=== PATIENT | male | born 1985 | race Caucasian/White ===

== ENCOUNTER 2021-11-07 09:46 | Outpatient (REF) | payer OTHER, SELFPAY ==
[2021-11-07 10:34] LABS: Binax Now Covid-19 Ag Negative (Negative)
[2021-11-07 10:35] LABS: Binax Internal Control QC Valid; Binax Lot number: 9864
== END 2021-11-07 09:47 | disposition home or self-care (01) ==
LOC: HO.LAB 09:46
PROVIDERS: Visit Provider Internal Medicine
DX: Z20.822 Contact with and (suspected) exposure to COVID-19 (principal)
CPT/HCPCS: 36415; C9803

== ENCOUNTER 2024-05-03 10:58 | Outpatient (REF) | payer MEDICARE, MEDICAID, SELFPAY ==
[2024-05-03 14:21] LABS: MANUAL DIFF FLAG NO
[2024-05-03 14:26] LABS: Basophils Absolute Auto 0.1 X10*3/uL (0.0-0.2); Basophils Percent Auto 0.7 % (0-2); Eosinophils Absolute Auto 0.5 X10*3/uL (0.0-0.4); Eosinophils Percent Auto 5.5 % (0-4); Hematocrit 43.2 % (42.0-52.0); Hemoglobin 13.9 g/dl (14.0-18.0); Imm Gran Abs Auto 0.06 X10*3/uL (0.00-0.03); Imm Gran Pct Auto 0.6 % (0.0-0.4); Lymphocytes Absolute Auto 3.1 X10*3/uL (1.2-4.9); Lymphocytes Percent Auto 31.5 % (20-40); Mean Corpuscular HGB Conc 32.2 g/dl (31.0-36.0); Mean Corpuscular Hemoglobin 31.6 pg (27.0-33.0); Mean Corpuscular Volume 98.2 fL (80.0-98.0); Mean Platelet Volume 10.1 fL (9.4-12.4); Monocytes Absolute Auto 0.5 X10*3/uL (0.1-1.2); Monocytes Percent Auto 5.6 % (2-11); Neutrophils Absolute Auto 5.4 x10*3/uL (2.0-8.3); Neutrophils Percent Auto 56.1 % (45-73); Platelet Count 356 X10*3/uL (160-400); Red Cell Distribution Width 12.4 % (11.0-16.0); White Blood Count 9.7 X10*3/uL (4.8-10.8)
[2024-05-03 14:37] LABS: Estimated Average Glucose 94 mg/dL; Hemoglobin A1c % 4.9 % (<6.0)
[2024-05-03 14:52] LABS: Alanine Aminotransferase 241 U/L (0-40); Albumin Level 4.5 g/dL (3.5-5.0); Alkaline Phosphatase 126 U/L (39-117); Anion Gap 15 (12-20); Aspartate Amino Transferase 140 U/L (5-37); Bilirubin Total 0.5 mg/dL (0.0-1.0); Blood Urea Nitrogen 10 mg/dL (9-16); Calcium 10.2 mg/dL (8.4-10.2); Carbon Dioxide 25 mmol/L (22-29); Chloride 107 mmol/L (96-108); Cholesterol 217 mg/dL (<200); Estimated Glomerular Filt Rate > 60; Glucose Random 103 mg/dL (60-115); HDL Cholesterol 36 mg/dL (>40); LDL Cholesterol Calculated 148 mg/dL (<100); Potassium 4.2 mmol/L (3.3-5.1); Sodium 143 mmol/L (135-145); Total Protein 7.7 g/dL (6.5-8.0); Triglycerides 167 mg/dL (<150)
[2024-05-03 14:56] LABS: HBS Num1 12.51 mIU/mL (0-7.99); HBc Num1 0.52 S/CO (0.00-0.79); HBsAGNum1 0.28 S/CO (0.00-0.99); HIV AB/AG Nonreactive (Nonreactive); HIV Num 1 0.07 S/CO (0.00-0.99); Hepatitis B Core Antibody Nonreactive (Nonreactive); Hepatitis B Surface Antigen Negative (Negative); ~Hepatitis B Surface Antibody REACTIVE (Nonreactive)
[2024-05-03 14:56] LABS: Microalbum/Creatinine Ratio Ur 15.8 ug/mg cr (<30)
[2024-05-03 14:58] LABS: TSH reflex Free T4 10.25 uIU/mL (0.32-4.0)
[2024-05-03 15:36] LABS: Free T4 (Free Thyroxine) 1.08 ng/dL (0.71-1.85)
[2024-05-05 22:23] LABS: TS Negative Control Passed; TS Panel A 0; TS Panel B 0; TS Positive Control Passed; TSpotTB Negative (Negative)
[2024-05-06 08:09] LABS: RPR Rapid Plasma Reagin NON-REACTIVE (NON-REACTIVE)
[2024-05-06 14:18] LABS: HCV Log PCR <1.18 NOT DETECTED Log IU/mL (NOT DETECTED); HepC Viral Load <15 NOT DETECTED IU/mL (NOT DETECTED)
== END 2024-05-03 10:59 | disposition home or self-care (01) ==
LOC: HO.CHCLDS 10:58
PROVIDERS: Visit Provider Registered Nurse
DX: Z00.00 Encounter for general adult medical examination without abnormal findings (principal); Z20.2 Contact with and (suspected) exposure to infections with a predominantly sexual mode of transmission
CPT/HCPCS: 36415; 80053; 80061; 82043; 82570; 83036; 84439; 84443; 85025; 86481; 86592; 86704; 86706; 87340; 87389; 87522

== ENCOUNTER 2025-03-03 14:15 | Outpatient (REF) | payer MEDICARE, MEDICAID, SELFPAY ==
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
--- OUTSIDE RECORDS SUMMARY | 2025-03-03 17:03 | XMS_ITS | Encounter Summary ---
Author Organization [employer] Address [address] [facility] [address] [place] [address] Care Team Providers Care Therapeutic Consultant Name Role Phone Joanie Paul HIDE DYER Primary Care Provider [phone] Komal Caceres NP Unavailable [phone] Encounter Details Date Type Department Care Team (Latest Contact Info) Description 03/03/2025 Travel Social History Tobacco Use Types Packs/Day Years [...] Description 04/11/2025 2:00 PM EDT Office Visit [facility] [address] [place] [address] Joanie Paul FNP [address] [place] [address] documented as of this encounter Visit Diagnoses Not on filedocumented in this encounter Additional Health Concerns Assessment Noted Time PHQ-9 Depression Total Score: 19 024 10:16 AM EDT documented as of this encounter Care Teams Therapeutic Consultant Relationship Specialty Start Date End Date Joanie Paul FNP [address] [place] [address] PCP - General Family Medicine 05/03/24 Komal Caceres NP [address] [phone] Sleep Medicine 10/08/24 documented as of this encounter
--- OUTSIDE RECORDS SUMMARY | 2025-03-03 17:03 | XMS_ITS | Encounter Summary ---
Author Organization [employer] Address [address] [facility] 7t [place] [address] Care Team Providers Care Government Auditor Name Role Phone Joanie Paul Primary Care Provider [phone] Komal Caceres GAS PUMPING STATION OPERATOR Unavailable + [phone] Reason for Referral * Consultation (Routine) - Pending Review Specialty Diagnoses / Procedures Referred By Manpreet damon Referred To Contact Podiatry Diagnoses Onychauxis Joanie Paul FNP [address] [place] [address] Phone: tel: fax: Referral ID Status Reason Start Date Expiration Date Visits Requested Visits Authorized [id number] Pending Review Specialty Services Required 03/03/2025 03/03/2026 1 1 Encounter Details Date Type Department Care Team ([facility] st Contact Info) Description 03/03/2025 1:00 PM EDT Office Visit [facility] [address] [place] [address] Joanie Paul FNP [address] [place] [address] Onychauxis (Primary Dx); Neck pain; Chronic low back pain, unspecified back pain laterality, unspecified whether sciatica present Social History Tobacco Use Types Packs/Day Years [...] AM EDT documented as of this encounter Last Filed Vital Signs Vital Sign Reading [...] Mass Index 43.76 03/03/2025 1:12 PM EDT documented in this encounter Plan of Treatment Upcoming Encounters Date Type Department Care Team (Late st Contact Info) Description 04/11/2025 2:00 PM EDT Office Visit [facility] [address] [place] [address] Joanie Paul FNP [address] [place] [address] Scheduled Orders Name Type Priority Associated Diagnoses Orde r Schedule XR Cervical Spine 2-3 Views Imaging Routine Neck pain Expected: 03/03/2025, Expires: 03/03/2026 XR Lumbar Spine Complete 4+ Views Imaging Routine Chronic low back pain, unspecified back pain laterality, unspecified whether sciatica present Expected: 03/03/2025, Expires: 03/03/2026 Scheduled Referrals Name Type Priority Associated Diagnoses Orde r Schedule Referral to Podiatry Outpatient Referral Routine Onychauxis Expected: 03/03/2025 (Approximate), Expires: 03/03/2026 documented as of this encounter Visit Diagnoses Diagnosis Onychauxis- Primary Other specified disease of nail Neck pain Cervicalgia Chronic low back pain, unspecified back pain laterality, unspecified whether sciatica present documented in this encounter Additional Health Concerns Assessment Noted Time PHQ-9 Depression Total Score: 19 024 10:16 AM EDT documented as of this encounter Care Teams Government Auditor Relationship Specialty Start Date End Date Joanie Paul FNP [address] [place] [address] PCP - General Family Medicine 05/03/24 Komal Caceres NP [address] [place] [phone] Sleep Medicine 10/08/24 documented as of this encounter
[2025-03-03 17:39] LABS: Estimated Average Glucose 94 mg/dL; Hemoglobin A1C 106.6065 umol/L; Hemoglobin A1c % 4.9 % (<6.0); Total Hemoglobin (HGBA1C) 3593.3747 umol/L
[2025-03-03 18:27] LABS: Alanine Aminotransferase 204 U/L (0-40); Albumin Level 4.4 g/dL (3.5-5.0); Alkaline Phosphatase 153 U/L (39-117); Anion Gap 15 (12-20); Aspartate Amino Transferase 115 U/L (5-37); Bilirubin Total 1.1 mg/dL (0.0-1.0); Blood Urea Nitrogen 8 mg/dL (9-16); Carbon Dioxide 24 mmol/L (22-29); Chloride 107 mmol/L (96-108); Estimated Glomerular Filt Rate > 60; Glucose Random 95 mg/dL (60-115); Potassium 3.8 mmol/L (3.3-5.1); Sodium 142 mmol/L (135-145); Total Protein 7.6 g/dL (6.5-8.0)
[2025-03-03 18:53] LABS: TSH reflex Free T4 4.82 uIU/mL (0.32-4.0)
[2025-03-03 19:33] LABS: Free T4 (Free Thyroxine) 1.12 ng/dL (0.71-1.85)
== END 2025-03-03 14:16 | disposition home or self-care (01) ==
LOC: HO.CHCLDS 14:15
PROVIDERS: Visit Provider Registered Nurse
DX: Z00.00 Encounter for general adult medical examination without abnormal findings (principal)
CPT/HCPCS: 36415; 80053; 83036; 84439; 84443

== ENCOUNTER 2025-07-14 10:23 | Outpatient (REF) | payer OTHER, SELFPAY ==
--- OUTSIDE RECORDS SUMMARY | 2025-07-14 09:00 | XMS_ITS | Encounter Summary ---
Author Organization [employer] Address [address] [facility] 7t [place] [address] Care Team Providers Care General Hardware Salesperson Name Role Phone Joanie Paul Primary Care Provider [phone] Komal Caceres PAINTER AIRBRUSH Unavailable + [phone] Reason for Referral * Consultation (Routine) - Pending Review Specialty Diagnoses / Procedures Referred By Contac t Referred To Contact Obesity Medicine Diagnoses Severe obesity (CMS/HCC) Joanie Paul FNP [address] [place] [address] Phone: tel: fax: Referral ID Status Reason Start Date Expiration Date Visits Requested Visits Authorized [id number] Pending Review Specialty Services Required 07/14/2025 07/14/2026 1 1 * Consultation (Routine) - Pending Review Specialty Diagnoses / Procedures Referred By Contac t Referred To Contact Gastroenterology Diagnoses Hemorrhoids, unspecified hemorrhoid type Dark stools Joanie Paul FNP [address] [place] [address] Phone: tel: fax: Referral ID Status Reason Start Date Expiration Date Visits Requested Visits Authorized [id number] Pending Review Specialty Services Required 07/14/2025 07/14/2026 1 1 * Consultation (Urgent) - Pending Review Specialty Diagnoses / Procedures Referred By Contac t Referred To Contact Pulmonary Disease Diagnoses Dyspnea on exertion Obstructive sleep apnea Joanie Paul FNP [address] [place] [address] Phone: tel: fax: Referral ID Status Reason Start Date Expiration Date Visits Requested Visits Authorized [id number] Pending Review Specialty Services Required 07/14/2025 07/14/2026 1 1 Encounter Details Date Type Department Care Team ([facility] st Contact Info) Description 07/14/2025 9:00 AM EDT Office Visit [facility] MED & PEDS [address] [place] [address] Joanie Paul FNP [address] [place] [address] Dyspnea on exertion (Primary Dx); Obstructive sleep apnea; Healthcare maintenance; Hemorrhoids, unspecified hemorrhoid type; Dark stools; Severe obesity (CMS/HCC) Social History Tobacco Use Types Packs/Day Years Used Date Smoking Tobacco: Never Smokeless Tobacco: Never Depression Answer Date Recorded Patient Health Questionnaire-9 Score 16 07/14/2025 Patient Health Questionnaire-9 Score 16 07/14/2025 Last PHQ-9: Questionnaire Data Not on file 0 07/14/2025 Housing Stability Answer Date Recorded What is your housing situation today? I have [place] 07/14/[address] you li ve. Do you have problems with any of the following? None of the above 07/14/2025 Food Insecurity Answer Date Recorded Within the past 12 months, y ou worried that your food would run out before you got money to buy more: Never True 07/14/2025 Within the past 12 months,th e food you bought just didn't last and you didn't have enough money to get more: Never True 06/2025 Transportation Answer Date Recorded In the past 12 months, has l ack of transportation kept you from medical appts, meetings, work or from getting things needed for daily living? No 07/14/2025 Utilities Answer Date Recorded In the past 12 months, has t he electric, gas, oil or water company threatened to shut off services in your home? No 07/14/2025 Depression Answer Date Recorded Patient Health Questionnaire-2 Score 4 07/14/2025 Internet Access Answer Date Recorded Internet Access Q1 Yes 07/14/2025 Internet Access Q2 Not on file 07/14/2025 Sex and Gender Information Value Date Recorded Sex Assigned at Male 05/03/2024 8:56 AM EDT Legal Sex Male 1:17 PM EDT Gender Identity Male 05/03/2024 8:56 AM EDT Sexual Orientation Straight 05/03/2024 8: 56 AM EDT documented as of this encounter Last Filed Vital Signs Vital Sign Reading Time Taken Comments Blood Pressure 138/88 07/14/2025 9:10 AM EDT Pulse 76 07/14/2025 9:10 AM EDT Temperature 36.9 C (98.4 F) 07/14/2025 9:10 AM EDT Respiratory Rate 20 07/14/2025 9:10 AM EDT Oxygen Saturation - - Inhaled Oxygen Concentration - - Weight 165 kg (364 lb) 07/14/2025 9:10 AM EDT Height 193 cm (6' 4 ) 07/14/2025 9:10 AM EDT Body Mass Index 44.31 07/14/2025 9:10 AM EDT documented in this encounter Functional Status * Over the past 2 weeks, how often have you been bothered by any of the following problems? Question Answer Date of Assessment Author Patient Health Questionnaire-2 Score 4 06/2025 9:11 AM EDT Corrine Ball MA * Little interest or pleasure in doing things Answer Date of Assessment Author More than half the days 07/14/2025 9:11 AM EDT Corrine Kern MA * Feeling down, depressed, or hopeless Answer Date of Assessment Author More than half the days 07/14/2025 9:11 AM EDT Corrine Kern MA * Trouble falling or staying asleep, or sleeping too much Answer Date of Assessment Author Nearly every day 07/14/2025 9:11 AM EDT Livia Ball MA * Feeling tired or having little energy Answer Date of Assessment Author Nearly every day 07/14/2025 9:11 AM EDT Livia Ball MA * Poor appetite or overeating Answer Date of Assessment Author Several days 07/14/2025 9:11 AM EDT Marci Ball MA * Feeling bad about yourself - or that you are a failure or have let yourself or your family down Answer Date of Assessment Author More than half the days 07/14/2025 9:11 AM EDT Corrine Kern MA * Trouble concentrating on things, such as reading the newspaper or watching television Answer Date of Assessment Author Several days 07/14/2025 9:11 AM EDT Marci Ball MA * Moving or speaking so slowly that other people could have noticed? Or the opposite - being so fidgety or restless that you have been moving around a lot more than usual. Answer Date of Assessment Author Several days 07/14/2025 9:11 AM EDT Marci Ball MA * Thoughts that you would be better off or hurting yourself in some way Answer Date of Assessment Author Several days 07/14/2025 9:11 AM EDT Marci Ball MA * Patient Health Questionnaire-9 Score Answer Date of Assessment Author 16 07/14/2025 9:11 AM EDT Marci Ball MA * How difficult have these problems made it for you to do your work, take care of things at home, or get along with other people? Answer Date of Assessment Author Not difficult at all 07/14/2025 9:11 AM EDT Corrine Queen MA documented as of this encounter Miscellaneous Notes * Assessment & Plan Note - LITTLE De Souza - 07/14/2025 9:15 AM EDTAssociated Problem(s): Dyspnea on exertion - Dec 2018 -hospitalization for loculated pleural effusion and empyema with concomitant necrotizingpneumonia involving the mediastinum - Broad differential including cardiac versus respiratory versus obesity versus variable treatment of MARCOS versus other - Pending orders: CXR, PFTs, and Echo. Encouraged to complete - Given complex past medical history and risk factors, will refer to cards for further eval documented in this encounter Plan of Treatment Upcoming Encounters Date Type Department Care Team (Late st Contact Info) Description 09/09/2025 11:00 AM EST Office Visit [facility] OPTOMETRY [address] [place] [address] Komal Bailon OD [address] [place] [address] Scheduled Orders Name Type Priority Associated Diagnoses Orde r Schedule TSH W/Reflex to FT4 Lab Routine Healthcare maintenance Expected: 07/14/2025 (Approximate), Expires: 07/14/2026 Lipid Panel, Standard Lab Routine Healthcare maintenance Expected: 07/14/2025 (Approximate), Expires: 07/14/2026 Comprehensive Metabolic Panel Lab Routine Healthcare maintenance Expected: 07/14/2025 (Approximate), Expires: 07/14/2026 Hemoglobin A1c Lab Routine Healthcare maintenance Expected: 07/14/2025 (Approximate), Expires: 07/14/2026 CBC auto differential Lab Routine Healthcare maintenance Expected: 07/14/2025 (Approximate), Expires: 07/14/2026 Scheduled Referrals Name Type Priority Associated Diagnoses Order Schedule Referral to Pulmonology Outpatient Referral Urgent Dyspnea on exertion Obstructive sleep apnea Expected: 07/14/2025 (Approximate), Expires: 07/14/2026 Referral to Gastroenterology Outpatient Referral Routine Hemorrhoids, unspecified hemorrhoid type Dark stools Expected: 07/14/2025 (Approximate), Expires: 07/14/2026 Referral to Weight Management Outpatient Referral Routine Severe obesity (CMS/HCC) Expected: 07/14/2025 (Approximate), Expires: 07/14/2026 documented as of this encounter Visit Diagnoses Diagnosis Dyspnea on exertion- Primary Other dyspnea and respiratory abnormality Obstructive sleep apnea Obstructive sleep apnea (adult) (pediatric) Healthcare maintenance Hemorrhoids, unspecified hemorrhoid type Dark stools Nonspecific abnormal finding in stool contents Severe obesity (CMS/HCC) Morbid obesity documented in this encounter Additional Health Concerns Assessment Noted Time PHQ-9 Depression Total Score: 16 025 9:11 AM EDT documented as of this encounter Care Teams General Hardware Salesperson Relationship Specialty Start Date End Date Joanie Paul FNP [address] [place] [address] PCP - General Family Medicine 05/03/24 Komal Caceres NP [address] [place] [phone] Sleep Medicine 10/08/24 documented as of this encounter
--- OUTSIDE RECORDS SUMMARY | 2025-07-14 12:20 | XMS_ITS | Clinical Summary ---
Author Organization [facility] Address [address] [place] [address] Phone Care Team Providers Care Geochemistry Teacher Name Role Phone Physician, Pcp Unknown Primary Care Provider Sarah vailable Encounters Date Type Department Care Team Description 06/11/2025 1:45 PM EDT Consult Orthopedic Surgery [facility] [address] [phone] Dale Bhatia DPM Ingrowing nail (Primary Dx); Onychogryphosis; Neuritis from Last 3 Months Social History Tobacco Use Types Packs/Day Years Used Date Smoking Tobacco: Never Assessed Sex and Gender Information Value Date Recorded Sex Assigned at Not on file Legal Sex Male 8:03 AM EDT Gender Identity Not on file Sexual Orientation Not on file Plan of Treatment Upcoming Encounters Date Type Department Care Team (Late st Contact Info) Description 07/14/2025 4:00 PM EDT Office Visit Orthopedic [facility] [address] [address] Dale Bhatia DPM [address] [address] Health Maintenance Due Date Last Done Comments Hepatitis B Vaccines (1 of 3 - 19+ 3-dose series) 2006 Depression Screening 11/06/2024 Hepatitis C Screening 03/20/2025 Medicare Annual Wellness Visit 03/20/2025 Social Influencers of Health Screening 03/20/2025 Hypertension/CHF/CAD Annual BMP Blood Test 06/12/2025 COVID-19 Vaccine ( - 2023-2 5 season) 2025 Influenza Vaccine (#1) 2025 03/09/2016 DTaP,Tdap,and Td Vaccines (2 - Td or Tdap) 03/09/2026 03/09/2016 Cholesterol Screening (Lipid Panel) 05/03/2029 05/03/2024 HIV Screening Completed 05/03/2024 HIB Vaccines Aged Out No longer eligi ble based on patient's age to complete this topic HPV Vaccines Aged Out No longer eligi ble based on patient's age to complete this topic Hepatitis A Vaccines Aged Out No long er eligible based on patient's age to complete this topic IPV Vaccines Aged Out No longer eligi ble based on patient's age to complete this topic MMR Vaccines Aged Out No longer eligi ble based on patient's age to complete this topic Meningococcal ACWY Vaccine Aged Out N o longer eligible based on patient's age to complete this topic Meningococcal B Vaccine Aged Out No l onger eligible based on patient's age to complete this topic Pneumococcal Vaccine: Pediat rics (0 to 5 Years) and At-Risk Patients (6 to 49 Years) Aged Out No longer eligi ble based on patient's age to complete this topic RSV Immunization Patients Un melecio 20 months Aged Out No longer eligible b ased on patient's age to complete this topic Varicella Vaccines Aged Out No longer eligible based on patient's age to complete this topic Insurance [employer] MEDICARE Member Subscriber Plan / Payer (Ef fective 2024-Present) Name:CHANDLER BLACK Relation to Subscriber:Self Name:Chandler Black Payer ID:[id number] Group ID:[id number] Type:Not on file Address: [place] [address] [address] MEDICAID - [place] Care Teams Geochemistry Teacher Relationship Specialty Start Date End Date Physician, Pcp Unknown PCP - General 03/20/25
--- OUTSIDE RECORDS SUMMARY | 2025-07-14 12:21 | XMS_ITS | Encounter Summary ---
Author Organization [employer] Address [address] [facility] 7t [place] [address] Care Team Providers Care Game Agent Name Role Phone Joanie Paul COMPLIANCE INTERN Primary Care Provider [phone] Komal Caceres SALES VICE PRESIDENT Unavailable + [phone] Reason for Visit * Reason Comments Med Refill Encounter Details Date Type Department Care Team ([facility] st Contact Info) Description 12/19/2024 Refill [facility] MED [facility] PEDS [address] [place], [place] [phone] Joanie Paul FNP [address] [place] [address] Low back pain at multiple sites Social [...] Description 09/09/2025 11:00 AM EST Office Visit [facility] OPTOMETRY [address] [place] [address] Komal Bailon OD [address] [place] [address] documented as of this encounter Visit Diagnoses Diagnosis Low back pain at multiple sites documented in this encounter Additional Health Concerns Assessment Noted Time PHQ-9 Depression Total Score: 19 024 10:16 AM EDT documented as of this encounter Care Teams Game Agent Relationship Specialty Start Date End Date Joanie Paul FNP [address] [place] [address] PCP - General Family Medicine 05/03/24 Komal Caceres NP [address] [phone] Sleep Medicine 10/08/24 documented as of this encounter
--- OUTSIDE RECORDS SUMMARY | 2025-07-14 12:21 | XMS_ITS | Encounter Summary ---
Author Organization [employer] Address [address] [facility] 7t [place] [address] Care Team Providers Care Early Childhood Education Specialist Name Role Phone Joanie Paul AIRLINE PILOT/FIRST OFFICER Primary Care Provider [phone] Komal Caceres STITCHING MACHINE SETTER Unavailable + [phone] Reason for Visit * Reason Onset Date Comments chart prep 07/11/2025 Encounter Details Date Type Department Care Team ([facility] st Contact Info) Description 07/11/2025 Telephone [facility] MED [facility] PEDS [address] [place], [place] [phone] Joanie Palu FNP [address] [place] [address] chart prep Social History Tobacco Use Types Packs/Day Years [...] AM EDT documented as of this encounter Miscellaneous Notes * Telephone Encounter - Corrine Ball MA - 07/11/2025 1:33 PM EDT Chart Prep Labs: done Images: done Referrals: appointment pending Vaccines due: Covid, Flu, and HPV Screenings: not applicable Overdue care gaps: SBIRT, SDOH, PHQ-9, and Disability screen documented in this encounter Plan of Treatment Upcoming Encounters Date Type Department Care Team (Late st Contact Info) Description 09/09/2025 11:00 AM EST Office Visit [facility] OPTOMETRY [address] [place] [address] Komal Bailon OD [address] [place] [address] documented as of this encounter Visit Diagnoses Not on filedocumented in this encounter Additional Health Concerns Assessment Noted Time PHQ-9 Depression Total Score: 19 024 10:16 AM EDT documented as of this encounter Care Teams Early Childhood Education Specialist Relationship Specialty Start Date End Date Joanie Paul FNP [address] [place] [address] PCP - General Family Medicine 05/03/24 Komal Caceres NP NPI: [id number] [place] [phone] Sleep Medicine 10/08/24 documented as of this encounter
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
--- OUTSIDE RECORDS SUMMARY | 2025-07-14 12:21 | XMS_ITS | Encounter Summary ---
Author Organization [employer] Address [address] [facility] [address] [place] [address] Care Team Providers Care Time Lock Expert Name Role Phone Joanie Paul LOG ROLLER Primary Care Provider [phone] Komal Caceres TRANSIT OPERATIONS SUPERVISOR Unavailable [phone] Reason for Visit * Reason Onset Date Comments Med Refill 07/11/2025 Encounter Details Date Type Department Care Team (Late st Contact Info) Description 07/11/2025 Refill [facility] [address] [place], [place] [phone] Joanie Paul FNP [address] [place] [address] Low back pain at multiple sites Social [...] encounter Miscellaneous Notes * Telephone Encounter - Jennifer Philip LPN - 07/11/2025 1:08 PM EDT Last seen 04/11/25. documented in this encounter Plan of Treatment Upcoming Encounters Date Type Department Care Team (Late st Contact Info) Description 09/09/2025 11:00 AM EST Office Visit [facility] [address] [place] [address] Komal Bailon, CLAUDETTE [address] [place] [address] documented as of this encounter Visit Diagnoses Diagnosis Low back pain at multiple sites documented in this encounter Additional Health Concerns Assessment Noted Time PHQ-9 Depression Total Score: 19 024 10:16 AM EDT documented as of this encounter Care Teams Time Lock Expert Relationship Specialty Start Date End Date Joanie Paul FNP [address] [place] [address] PCP - General Family Medicine 05/03/24 Komal Caceres NP [address] [phone] Sleep Medicine 10/08/24 documented as of this encounter
--- OUTSIDE RECORDS SUMMARY | 2025-07-14 12:21 | XMS_ITS | Encounter Summary ---
Author Organization [employer] Address [address] [facility] [address] [place] [address] Care Team Providers Care Seasonal Tax Preparer Name Role Phone Joanie Paul TRAVERTINE INSTALLER Primary Care Provider Komal Caceres ORTHOTICS PROSTHETICS ASSISTANT Unavailable [phone] Encounter Details Date Type Department Care Team (Latest Contact Info) Description 07/14/2025 Travel Social History Tobacco Use Types Packs/Day [...] AM EDT documented as of this encounter Functional Status * Over the [...] than half the days 07/14/2025 9:11 AM Corrine Mathew [place] * Trouble falling or staying asleep, or sleeping too much Answer Date of Assessment Author Nearly every day 07/14/2025 9:11 AM Livia Florian [place] * Feeling tired or having little energy Answer Date of Assessment Author Nearly every day 07/14/2025 9:11 AM Livia Florian [place] * Poor appetite or overeating Answer Date of Assessment Author Several days 07/14/2025 9:11 AM Marci Florian [place] * Feeling bad about yourself - or that you are a failure or have let yourself or your family down Answer Date of Assessment Author More than half the days 07/14/2025 9:11 AM EDCorrine Art [place] * Trouble concentrating on things, such as reading the newspaper or watching television Answer Date of Assessment Author Several days 07/14/2025 9:11 AM Marci Florian MA * Moving or speaking so slowly that other people could have noticed? Or the opposite - being so fidgety or restless that you have been moving around a lot more than usual. Answer Date of Assessment Author Several days 07/14/2025 9:11 AM Marci Florian MA * Thoughts that you would be [...] Queen [place] documented as of this encounter Plan of Treatment Upcoming Encounters Date Type Department Care Team (Late st Contact Info) Description 09/09/2025 11:00 AM EST Office Visit [facility] [address] [place], [place] [phone] Komal Bailon, OD [address] [place] [address] documented as of this encounter Visit Diagnoses Not on filedocumented in this encounter Additional Health Concerns Assessment Noted Time PHQ-9 Depression Total Score: 16 025 9:11 AM EDT documented as of this encounter Care Teams Seasonal Tax Preparer Relationship Specialty Start Date End Date Joanie Paul FNP [address] [place] [address] PCP - General Family Medicine 05/03/24 Komal Caceres NP [address] [phone] Sleep Medicine 10/08/24 documented as of this encounter
[2025-07-14 14:56] LABS: MANUAL DIFF FLAG NO
[2025-07-14 15:21] LABS: Hematocrit 43.6 % (42.0-52.0); Hemoglobin 14.2 g/dl (14.0-18.0); Imm Gran Abs Auto 0.11 X10*3/uL (0.00-0.03); Imm Gran Pct Auto 1.0 % (0.0-0.4); Lymphocytes Absolute Auto 3.3 X10*3/uL (1.2-4.9); Mean Corpuscular HGB Conc 32.6 g/dl (31.0-36.0); Mean Corpuscular Hemoglobin 31.8 pg (27.0-33.0); Mean Corpuscular Volume 97.8 fL (80.0-98.0); NRBC Abs Auto 0.000 X10*3/uL (0.0-0.012); NRBC Pct Auto 0.0 /100WBC (0.0-0.2); Platelet Count 344 X10*3/uL (160-400); Red Blood Count 4.46 X10*6/uL (4.60-5.80); White Blood Count 11.2 X10*3/uL (4.8-10.8)
[2025-07-14 15:59] LABS: Alanine Aminotransferase 211 U/L (0-40); Albumin Level 4.6 g/dL (3.5-5.0); Alkaline Phosphatase 154 U/L (39-117); Anion Gap 13 (12-20); Aspartate Amino Transferase 124 U/L (5-37); Blood Urea Nitrogen 12 mg/dL (9-16); Calcium 9.5 mg/dL (8.4-10.2); Carbon Dioxide 25 mmol/L (22-29); Chloride 108 mmol/L (96-108); Cholesterol 221 mg/dL (<200); Estimated Glomerular Filt Rate > 60; HDL Cholesterol 34 mg/dL (>40); Potassium 4.1 mmol/L (3.3-5.1); Sodium 142 mmol/L (135-145); Total Protein 7.7 g/dL (6.5-8.0); Triglycerides 196 mg/dL (<150)
[2025-07-14 16:14] LABS: Hemoglobin A1C 112.8501 umol/L; Total Hemoglobin (HGBA1C) 3722.6084 umol/L
[2025-07-14 16:31] LABS: Free T4 (Free Thyroxine) 1.05 ng/dL (0.71-1.85)
== END 2025-07-14 10:24 | disposition home or self-care (01) ==
LOC: HO.CHCLDS 10:23
PROVIDERS: Visit Provider Registered Nurse
DX: Z00.00 Encounter for general adult medical examination without abnormal findings (principal); Z13.1 Encounter for screening for diabetes mellitus; Z13.6 Encounter for screening for cardiovascular disorders; Z13.29 Encounter for screening for other suspected endocrine disorder
CPT/HCPCS: 36415; 80053; 80061; 83036; 84439; 84443; 85025

== ENCOUNTER 2025-07-25 11:36 | Outpatient (AMB) | payer OTHER, SELFPAY ==
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
[2025-07-25 11:44] VITALS: BP 177/104; PULSE 86; O2SAT 96; BMI 46.0
--- OUTSIDE RECORDS SUMMARY | 2025-07-25 12:11 | XMS_ITS | Encounter Summary ---
Author Organization [employer] Address [address] [place] [address] Care Team Providers Care Special Warfare Operator Name Role Phone Joanie Paul COURTROOM CLERK Primary Care Provider [phone] Komal Caceres AIRPLANE FLIGHT ATTENDANT Unavailable [phone] Reason for Visit * Reason Comments Med Refill Encounter Details Date Type Department Care Team ([facility] st Contact Info) Description 12/19/2024 Refill [facility] [address] [place], [place] [phone] Joanie Paul FNP [address] [place] [address] Low back pain at multiple sites Social [...] Description 09/09/2025 11:00 AM EST Office Visit [facility] OPTOMETRY [address] [place] [address] Komal Bailon OD [address] [place] [address] documented as of this encounter Visit Diagnoses Diagnosis Low back pain at multiple sites documented in this encounter Additional Health Concerns Assessment Noted Time PHQ-9 Depression Total Score: 19 024 10:16 AM EDT documented as of this encounter Care Teams Special Warfare Operator Relationship Specialty Start Date End Date Joanie Paul FNP [address] [place] [address] PCP - General Family Medicine 05/03/24 Komal Caceres NP [address] [phone] Sleep Medicine 10/08/24 documented as of this encounter
--- OUTSIDE RECORDS SUMMARY | 2025-07-25 12:11 | XMS_ITS | Encounter Summary ---
Author Organization [employer] Address [address] [place] [address] Care Team Providers Care Handicrafts Teacher Name Role Phone Bonnie Paul Primary Care Provider [phone] Komal Caceres INTERNET SYSTEMS ADMINISTRATOR Unavailable [phone] Reason for Referral * PFT (Routine) - Authorized Specialty Diagnoses / Procedures Referred By Contanabel t Referred To Contact Diagnoses Dyspnea on exertion Procedures Pulmonary Function Test Bonnie Paul FNP [address] [place] [address] Phone: tel: fax: [address] Phone: tel: fax: Referral ID Status Reason Start Date Expiration Date V isits Requested Visits Authorized [id number] Authorized 07/24/2025 07/24/2026 1 1 Encounter Details Date Type Department Care Team ([facility] st Contact Info) Description 07/18/2025 Telephone [facility] [address] [place], [place] [phone] Bonnie Paul FNP [address] [place], [place] [phone] Social History Tobacco Use Types Packs/Day Years [...] as of this encounter Miscellaneous Notes * Addendum Note - LITTLE De Souza - 07/24/2025 6:47 PM EDTAddended by: BONNIE PAUL on: 07/24/2025 06:47 PM Modules accepted: Orders * Telephone Encounter - LITTLE De Souza - 07/24/2025 6:47 PM EDT Updated PFT order placed * Telephone Encounter - Gina Epstein - 07/18/2025 11:04 AM EDT Good morning Bonnie, referral for pulmonology placed on hold until PFT is performed. documented in this encounter Plan of Treatment Upcoming Encounters Date Type Department Care Team (Late st Contact Info) Description 09/09/2025 11:00 AM EST Office Visit [facility] OPTOMETRY [address] [place], [place] [phone] Komal Bailon, OD [address] [place] [address] Scheduled Orders Name Type Priority Associated Diagnoses Orde r Schedule Pulmonary Function Test PFT Routine Dyspnea on exertion Expected: 07/24/2025, Expires: 01/21/2026 documented as of this encounter Visit Diagnoses Diagnosis Dyspnea on exertion- Primary Other dyspnea and respiratory abnormality documented in this encounter Additional Health Concerns Assessment Noted Time PHQ-9 Depression Total Score: 16 025 9:11 AM EDT documented as of this encounter Care Teams Handicrafts Teacher Relationship Specialty Start Date End Date Bonnie Paul FNP [address] [place] [address] PCP - General Family Medicine 05/03/24 Komal Caceres NP [address] [phone] Sleep Medicine 10/08/24 documented as of this encounter
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
--- OUTSIDE RECORDS SUMMARY | 2025-07-25 12:11 | XMS_ITS | Clinical Summary ---
Author Organization [address] [facility] Address [address] [place] [address] Phone Care Team Providers Care Drapery Counselor Name Role Phone Physician, Pcp Unknown Primary Care Provider Sarah vailable Allergies No known active allergies Medications blood pressure monitor (Blood Pressure Kit) kit Use to check blood pressure once daily (1 hour after taking medication for blood pressure) and if symptomatic 05/05/20 24 Active ARIPiprazole (ABILIFY) 15 mg tablet take one tablet every night at bedtime 04/01/20 25 Active BP Wash 10 % external wash Apply 1 Application topically 2 (two) times a day. apply to the affected area(s) Active Symbicort 160-4.5 mcg/actuation inhaler INHALE ONE PUFF TWICE DAILY, RINSE MOUTH AFTER USE Active cetirizine (ZyrTEC) 10 mg tablet Take 1 tablet (10 mg total) by mouth daily. 07/14/20 25 Active docusate sodium (COLACE) 100 mg capsule TAKE ONE CAPSULE TWICE DAILY NEEDED FOR CONSTIPATION Active famotidine (PEPCID) 20 mg tablet TAKE ONE TABLET TWICE DAILY NEEDED FOR HEARTBURN Active gabapentin (NEURONTIN) 300 mg capsule Take 1 capsule (300 mg total) by mouth 2 times daily. 04/11/20 25 026 Active fluticasone propionate (FLONASE) 50 mcg/actuation nasal spray Administer 1-2 sprays into each nostril daily. 07/14/20 25 026 Active silver sulfADIAZINE (Silvadene) 1 % cream Apply topically 1 (one) time each day. 50 g 07/14/20 25 Active amoxicillin-clav ulanate (AUGMENTIN) 875-125 mg per tablet Take 1 tablet by mouth 2 (two) times a day for 10 days. 20 tablet 07/14/20 025 Encounters Date Type Department Care Team Description 07/14/2025 4:00 PM EDT Office Visit Orthopedic Surgery [facility] [address] [phone] Dale Bhatia DPM Cellulitis of right foot (Primary Dx); Ingrowing nail 06/11/2025 1:45 PM EDT Consult Orthopedic Surgery [facility] [address] [phone] Dale Bhatia DPM Ingrowing nail (Primary Dx); [...] Care Team (Late st Contact Info) Description 07/28/2025 1:00 PM EDT Office Visit Orthopedic [facility] [address] [phone] Dale Bhatia DPM [address] [phone] Health Maintenance Due Date Last Done Comments [...] 03/09/2016 Cholesterol Screening (Lipid Panel) 05/03/2029 05/03/2024 RSV Immunization Adult Patie nts (1 - 1-dose 75+ series) 2062 HIV Screening Completed 05/03/2024 HIB Vaccines Aged [...] patient's age to complete this topic Insurance [place] [address] MEDICARE Member Subscriber Plan / Payer (Ef fective 2024-Present) Name:CHANDLER BLACK Relation to Subscriber:Self Name:Chandler Black Payer ID:[id number] Group ID:[id number] Type:Not on file Address: [address] [place] [phone] MEDICAID - [place] Care Teams Drapery Counselor Relationship Specialty Start Date End Date Physician, Pcp Unknown PCP - General 03/20/25
== END 2025-07-25 12:12 | disposition home or self-care (01) ==
LOC: HO.PMC 11:37
PROVIDERS: PCP Registered Nurse; Visit Provider Nurse Practitioner Family
DX: E66.01 Morbid (severe) obesity due to excess calories (principal); Z68.42 Body mass index [BMI] 45.0-49.9, adult; M47.812 Spondylosis without myelopathy or radiculopathy, cervical region; M54.2 Cervicalgia; M54.9 Dorsalgia, unspecified; G89.29 Other chronic pain; Z87.81 Personal history of (healed) traumatic fracture; M62.838 Other muscle spasm; M54.12 Radiculopathy, cervical region; M25.551 Pain in right hip; M25.552 Pain in left hip
CPT/HCPCS: 99204

== ENCOUNTER → 2025-07-25 11:36 | Outpatient (BNVA) | payer OTHER, SELFPAY | PROVIDERS: PCP Registered Nurse; Visit Provider Nurse Practitioner Family | DX: M54.2 Cervicalgia (principal); M54.9 Dorsalgia, unspecified; G89.29 Other chronic pain; M47.812 Spondylosis without myelopathy or radiculopathy, cervical region; M62.838 Other muscle spasm; M54.12 Radiculopathy, cervical region; M25.551 Pain in right hip; M25.552 Pain in left hip; M48.02 Spinal stenosis, cervical region; E66.01 Morbid (severe) obesity due to excess calories; Z68.42 Body mass index [BMI] 45.0-49.9, adult; Z87.81 Personal history of (healed) traumatic fracture | CPT/HCPCS: 99202 ==

== ENCOUNTER 2025-09-16 09:01 | Outpatient (REF) | payer OTHER, SELFPAY ==
--- NOTE | ~2025-09-16 | US_ITS ---
EXAMINATION: US ABDOMEN LIMITED WITH LIVER ELASTOGRAPHY HISTORY: 39 y/o M with persistent transaminitis. TECHNIQUE: Real-time grayscale ultrasound imaging of the right upper quadrant was performed and images were reviewed. COMPARISON: There are no prior studies available for comparison. FINDINGS: Liver: The liver is enlarged. The right lobe of the liver measures 25.6 cm in size. The left lobe of the liver measures 16.1 cm in size. The liver demonstrates increased homogeneous echotexture. No focal mass or intrahepatic biliary ductal dilatation is identified. There is normal hepatopedal flow in the portal vein. Ultrasound elastography of the liver was performed with 10 separate measurements of the liver parenchyma with the patient in the supine position. Measurements were obtained approximately 2 cm below Josh's capsule and perpendicular to the capsule. The median shear wave velocity is 1.39 m/s. The interquartile range/median (IQR/median) is 0.12. Gallbladder and biliary tree: The gallbladder is contracted, without evidence of calculi, wall thickening, or pericholecystic fluid. There is no sonographic Seymour sign. The common bile duct is normal in caliber measuring 5.6 mm. Right Kidney: The right kidney measures 13.6 cm in length. The right kidney is unremarkable, without evidence of masses, hydronephrosis, or calculi. Pancreas: The pancreatic head, neck, and body are unremarkable. The pancreatic tail is obscured by bowel gas. There is no free fluid in the right upper quadrant. US/US abdomen zhang w elastography IMPRESSION: Enlarged echogenic liver suggestive of hepatocellular disease. This most commonly represents fatty infiltration. The median shear wave velocity in the liver is 1.39 m/s, corresponding to a median liver stiffness of 6 kPa. The IQR/median value is 0.12. This is indicative of a quality data set. Findings are indicative of a low elastography value which rules out advanced chronic liver disease in asymptomatic patients. REFERENCE: Society of Radiologists in Ultrasound Liver Stiffness Thresholds (2020): LIVER STIFFNESS THRESHOLDS: *Shear wave velocity less than 1.3 m/s (Liver Stiffness equal or less than 5 kPa): High probability of being normal. *Shear wave velocity less than 1.7 m/s (Liver Stiffness less than 9 kPa): In the absence of other known clinical signs, rules out compensated advanced chronic liver disease. *Shear wave velocity between 1.7-2.1 m/s (Liver Stiffness 9-13 kPa): Suggestive of compensated advanced chronic liver disease but need further test for confirmation. *Shear wave velocity between 2.1-2.4 m/s (Liver Stiffness 13-17 kPa): Rules in compensated advanced chronic liver disease. *Shear wave velocity greater than 2.4 m/s (Liver Stiffness over 17 kPa): Suggestive of clinically significant portal hypertension. . OTHER CONSIDERATIONS: The stage of liver fibrosis may be overestimated in the setting of acute hepatitis, liver inflammation, elevated liver function tests, hepatic vascular congestion, obstructive cholestasis, non-fasting state, and infiltrative diseases such as amyloidosis and lymphoma. In some patients with NAFLD, the liver stiffness thresholds for compensated advanced chronic liver disease may be lower. In causes other than viral hepatitis and NAFLD, liver stiffness thresholds are not well established. Electronically signed by: Khushi Marquez MD 09/16/2025 09:53 AM JAMES
--- OUTSIDE RECORDS SUMMARY | 2025-09-16 09:36 | XMS_ITS | Encounter Summary ---
Author Organization [employer] Address [address] [facility] [address] [place] [address] Care Team Providers Care Sight Mounter Name Role Phone Joanie Paul VETERINARY TECHNOLOGIST Primary Care Provider Komal Caceres MANAGER SHELL Unavailable + [phone] Reason for Visit * Reason Comments Med Refill Encounter Details Date Type Department Care Team ([facility] st Contact Info) Description 12/19/2024 Refill [facility]S [address] [place], [place] [phone] Joanie Paul FNP [address] [place] [address] Low back pain at multiple sites Social [...] as of this encounter Plan of Treatment Not on file documented as of this encounter Visit Diagnoses Diagnosis Low back pain at multiple sites documented in this encounter Additional Health Concerns Assessment Noted Time PHQ-9 Depression Total Score: 19 024 10:16 AM EDT documented as of this encounter Care Teams Sight Mounter Relationship Specialty Start Date End Date Joanie Paul FNP [address] [place] [phone] PCP - General Family Medicine 05/03/24 Komal Caceres NP [address] [place] [phone] Sleep Medicine 10/08/24 documented as of this encounter
--- OUTSIDE RECORDS SUMMARY | 2025-09-16 09:36 | XMS_ITS | Clinical Summary ---
Author Organization 175 [facility] Address [address] [place] [address] Phone Care Team Providers Care Rotary Rig Engine Operator Name Role Phone Physician, Pcp Unknown Primary Care Provider Sarah vailable Allergies No known active allergies Medications blood pressure monitor (Blood Pressure Kit) kit Use to check blood pressure once daily (1 hour after taking medication for blood pressure) and if symptomatic 4 Active ARIPiprazole (ABILIFY) 15 mg tablet take one tablet every night at bedtime 5 Active BP Wash 10 % external wash Apply 1 Application topically 2 (two) times a day. apply to the affected area(s) Active Symbicort 160-4.5 mcg/actuation inhaler INHALE ONE PUFF TWICE DAILY, RINSE MOUTH AFTER USE Active cetirizine (ZyrTEC) 10 mg tablet Take 1 tablet (10 mg total) by mouth daily. 5 Active docusate sodium (COLACE) 100 mg capsule TAKE ONE CAPSULE TWICE DAILY NEEDED FOR CONSTIPATION Active famotidine (PEPCID) 20 mg tablet TAKE ONE TABLET TWICE DAILY NEEDED FOR HEARTBURN Active gabapentin (NEURONTIN) 300 mg capsule Take 1 capsule (300 mg total) by mouth 2 times daily. 5 026 Active fluticasone propionate (FLONASE) 50 mcg/actuation nasal spray Administer 1-2 sprays into each nostril daily. 5 026 Active silver sulfADIAZINE (Silvadene) 1 % cream Apply topically 1 (one) time each day. 50 g 5 Active Encounters Date Type Department Care Team Description 08/11/2025 1:15 PM EDT Office Visit Orthopedic Surgery [facility] [address] [phone] Dale Bhatia, DPM Ulcer of toe of right foot, limited to breakdown of skin (CMS/HCC V24, CMS/HCC V28) (Primary Dx); Neuritis 07/28/2025 1:00 PM EDT Office Visit Orthopedic [facility] [address] [phone] Dale Bhatia, DPM Ulcer of toe of right foot, limited to breakdown of skin (CMS/HCC V24, CMS/HCC V28) (Primary Dx); Ulcer of toe of right foot, with fat layer exposed (CMS/HCC V24, CMS/HCC V28); Neuritis 07/14/2025 4:00 PM EDT Office Visit Orthopedic [facility] [address] [phone] Dale Bhatia, DPM Cellulitis of right foot (Primary Dx); Ingrowing nail from Last 3 Months Social History Tobacco Use Types Packs/Day Years Used Date Smoking Tobacco: Never Assessed Sex and Gender Information Value Date Recorded Sex Assigned at Not on file Legal Sex Male 8:03 AM EDT Gender Identity Not on file Sexual Orientation Not on file Plan of Treatment Health Maintenance Due Date Last Done Comments Hepatitis B Vaccines (1 of 3 - 19+ 3-dose series) 2006 HPV Vaccines (1 - 3-dose SCD M series) 2014 Depression Screening 11/06/2024 Hepatitis C Screening 03/20/2025 Medicare Annual Wellness Visit 03/20/2025 Social Influencers of Health Screening 03/20/2025 COVID-19 Vaccine ( - 2023-2 5 season) 2025 Influenza Vaccine (#1) 2025 03/09/2016 DTaP,Tdap,and Td Vaccines (2 - Td or Tdap) 03/09/2026 03/09/2016 Hypertension/CHF/CAD Annual BMP Blood Test 07/14/2026 07/14/2025 Cholesterol Screening (Lipid Panel) 07/14/2030 07/14/2025, 05/03/2024 RSV Immunization Adult Patients (1 - 1-dose 75+ series) 2062 HIV [...] to 49 Years) Aged Out No longer eligible b ased on patient's age to complete this topic RSV Immunization Patients Under 20 months Aged Out No longer eligible b ased on patient's age to complete this topic Varicella Vaccines Aged Out No longer eligible based on patient's age to complete this topic Insurance [employer] MEDICARE Member Subscriber Plan / Payer (Ef fective 2024-Present) Name:CHANDLER BLACK Relation to Subscriber:Self Name:Chandler Black Payer ID:[id number] Group ID:[id number] Type:Not on file Address: [facility] [address] [id number] MEDICAID - [place] Care Teams Rotary Rig Engine Operator Relationship Specialty Start Date End Date Physician, Pcp Unknown PCP - General 03/20/25
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
== END 2025-09-16 09:02 | disposition home or self-care (01) ==
LOC: HO.US 09:01
PROVIDERS: PCP Registered Nurse; Visit Provider Registered Nurse
DX: R74.01 Elevation of levels of liver transaminase levels (principal)
CPT/HCPCS: 76705; 76981

== ENCOUNTER → 2025-09-16 09:03 | Outpatient (BNV) | payer OTHER, SELFPAY | PROVIDERS: PCP Registered Nurse; Visit Provider Radiology Diagnostic Radiology | DX: R16.0 Hepatomegaly, not elsewhere classified (principal) | CPT/HCPCS: 76705 ==

== ENCOUNTER 2025-10-15 16:00 | Outpatient (REF) | payer OTHER, SELFPAY ==
--- NOTE | 2025-10-15 | PFT_ITS ---
Spirometry [] Lung Volumes [] Diffusion Capacity [] Methacholine Challenge [] Flow Volume Loops [] MVV [] MIP/MEP(Max inspiratory pressure/Max expiratory pressure) [] 6 Minute Walk Test [] ABG [] Interpretation [] MTDD
[2025-10-15 16:44] VITALS: PULSE 94
--- OUTSIDE RECORDS SUMMARY | 2025-10-16 00:43 | XMS_ITS | Encounter Summary ---
Author Organization [employer] Address [address] [facility] [address] [place] [address] Care Team Providers Care Hydraulic Press Servicer Name Role Phone Joanie Paul YOUTH AGENT Primary Care Provider [phone] Komal Caceres CONDITIONING YARD SUPERVISOR Unavailable [phone] Reason for Visit * Reason Comments Med Refill Encounter Details Date Type Department Care Team ([facility] st Contact Info) Description 12/19/2024 Refill [facility] [address] [place], [place] [phone] Joanie Paul FNP [address] [place] [address] Low back pain at multiple sites Social [...] Upcoming Encounters Date Type Department Care Team ([facility] st Contact Info) Description 10/20/2025 3:45 PM EST Office Visit [facility] [address] [place] [address] Joanie Paul FNP [address] [place] [address] documented as of this encounter Visit Diagnoses Diagnosis Low back pain at multiple sites documented in this encounter Additional Health Concerns Assessment Noted Time PHQ-9 Depression Total Score: 19 024 10:16 AM EDT documented as of this encounter Care Teams Hydraulic Press Servicer Relationship Specialty Start Date End Date Joanie Paul FNP [address] [place] [address] PCP - General Family Medicine 05/03/24 Komal Caceres NP [address] [phone] Sleep Medicine 10/08/24 documented as of this encounter
--- OUTSIDE RECORDS SUMMARY | 2025-10-16 00:43 | XMS_ITS | Clinical Summary ---
Author Organization [address] [facility] Address [address] [place] [address] Phone Care Team Providers Care Registered Veterinary Technician Name Role Phone Physician, Pcp Unknown Primary [...] 1:15 PM EDT Office Visit Orthopedic Surgery [facility] [address] [phone] Dale Bhatia, DPM Ulcer of toe of right foot, limited to breakdown of skin (CMS/HCC V24, CMS/HCC V28) (Primary Dx); Neuritis 07/28/2025 1:00 PM EDT Office Visit Orthopedic Surgery - [place] [address] [facility] [address] [place] [phone] Dale Bhatia, DPM Ulcer of toe of right foot, limited to breakdown of skin (CMS/HCC V24, CMS/HCC V28) (Primary Dx); Ulcer of toe of right foot, with fat layer exposed (CMS/HCC V24, CMS/HCC V28); Neuritis from Last 3 Months Social History [...] Health Screening 03/20/2025 COVID-19 Vaccine ( - 2024-2 6 season) 2025 Influenza Vaccine (#1) 2025 03/09/2016 [...] ID:[id number] Group ID:[id number] Type:Not on file Address: [facility] [address] [place] [id number] MEDICA[place] - [place] Care Teams Registered Veterinary Technician Relationship Specialty Start Date End Date Physician, Pcp Unknown PCP - General 03/20/25
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
--- OUTSIDE RECORDS SUMMARY | 2025-10-16 00:43 | XMS_ITS | Data Portability ---
Author Organization [place] - [facility] Address [address] [place] [id number] Assessment Encounter Date Assessment Date Assessment LastModified by Organization Details LastModified Time 12/25/2018 12/25/2018 Overview/History : 33 yo male with PMH significant for recent hospitalization for necrotizing pneumonia who presents on Zosyn IV TID via PICC line with complains of palpitations, chest discomfort and SOB experienced one during medication administration this AM. who gives medications states that she pushed medications too fast due to being tired. Patient denied any symptoms at the time of evaluation. Exam: young male well appearing, no acute distress, non-toxic appearance alert and oreinted X3 Hearts sounds are regular rate and rhythm. No murmurs, rubs or gallops. Normal peripheral perfusion. Lungs clear to auscultation; No respiratory distress; No wheezing, rhonchi, or rales. Abdomen soft, non-tender, and non-distended. Bowel sounds are normal Good range of motion of all major joints. No tenderness. Distal Neurovascular function intact with brisk capillary refill. No pretibial pitting edema. Right arm with PICC line placed approximately 7- 8 cm above AC; area without erythema, discharge or indurations. DDx considered, but not limited to: Adverse reaction to rapid medication administration Anxiety - possible ACS - unlikely Work up/Results: EKG rate 84; normal sinus rhythm; Borderline ST elevation leads V4-V5 without reciprocal changes; There is no ST-T segment elevation to suggest ischemia in the absence of cardiovascular risk factors Plan/Discussion: - Symptoms are most likely related to rapid administration of Zosyn or anxiety - HEART Score for Major Cardiac Events is low; no major CV risk factors present; EKG without significant findings. - Consulted virtual doctor train reservation clerk, Dr. Hutchinson, to review EKG changes - advised patient and family to follow medication administration procedure as they were trained - advised to consider cutting down on medical marijuana use while on Zosyn as interactions are unknown; additionally advised that certain strains of marijuana may cause anxiety and similar symptoms - advised patient to seek immediate medical attention or call 911 if he experience similar symptoms or develops any new concerning symptoms such as confusion, difficulty breathing, crushing chest pain, pain in the arm/neck/jaw, dizziness, cold sweats, cool clammy skin - patient and family understand and agree to the treatment plan In order to obtain further information and compare any laboratory results/values, I have accessed patient records on the [employer] [facility]. This information was pertinent in my medical decision making today. Time On Scene with Patient: 00:51:37 mercedes Not available 12/26/2018 22:19:14 Plan of Treatment Reminders Order Date Submit Date Provider Last Modified By Organization Details Last Modified Time Details Appointments None record ed. Lab None record ed. Referral None record ed. Procedures None record ed. Surgeries None record ed. Imaging None record ed. Medication Orders None record ed. Patient TargetsNo targets recorded. Patient Instructions Encounter Date Encounter Id Patient Instructions Last Modified By Organization Details Last Modified Time 12/25/2018 [id number] rhythm strip, EKG* nyuzych Not availa ble 12/25/2018 20:44:16 YOU WERE SEEN FO R PALPITATIONS TODAY. YOUR SYMPTOMS ARE MOST LIKELY RELATED TO IV MEDICATIONS BEING PUSHED IN TOO FAST. PLEASE, TRY TO PUSH MEDICATION SLOWLY AND MONITOR YOUR SYMPTOMS. IF YOUR SYMPTOMS REOCURE SEEK IMMEDIATE MEDICAL ATTENTION CALL 911 OR GO TO THE EMERGENCY DEPATRMENT. Anxiety What you should know: Anxiety is a condition that causes you to feel excessive worry, uneasiness, or fear. Family or work stress, smoking, caffeine, and alcohol can increase the risk of developing anxiety. Certain medications or health conditions can also increase the risk of developing anxiety. Anxiety may begin gradually, but can become a long-term condition if it is not managed properly. Anxiety can cause physical symptoms as well as a sensation of w orry. Some of the possible physical symptoms are chest tightness, shortness of breath, dizziness, numbness and tingling in the lips and hands, and difficulty concentrating. It is often difficult to tell the difference between these symptoms and the symptoms of a more serious illness. Therefore, if you have new onset of these symptoms, you should seek immediate medical attention, especially if the symptoms are persistent. AFTER YOUR VISIT WITH [facility] Medicines: We may have prescribed medicines to help you relax. Take your medicine as directed. [facility] cannot refill these medicines for you. Contact your primary care provider (PCP) if you think your medicine is not helping or if you have side effects. Do not take alcohol with this medicine. Follow up with your Primary Care Provider this week or as directed: Make appointment to see PCP within one week. If you do not have PCP, follow up with referrals provided. Manage anxiety: Consider Counseling. Cognitive behavioral therapy (CBT) can help you understand and change how you react to events that trigger your symptoms. I suggest you get the book Feeling Good: The New Mood Therapy by Dr. Sukumar Ann regarding CBT or research CBT on the internet. Find ways to manage your symptoms. Activities such as exercise, meditation, or listening to music can help you relax. Practice deep breathing. Breathing can change how your body reacts to stress. Focus on taking slow, deep breaths several times a day, or during an anxiety attack. Breathe in through your nose, and out through your mouth. Avoid caffeine. Caffeine can make your symptoms worse. Avoid foods and drinks that are marketed as energy boosters. These products frequently have ingredients that worsen anxiety. Limit or avoid alcohol, marijuana and other intoxicants. Ask your PCP if alcohol is safe for you. You may not be able to drink alcohol if you take certain anxiety or depression medicines. Limit alcohol to 1 drink per day if you are a woman. Limit alcohol to 2 drinks per day if you are a man. A d rink of alcohol is considered 12 ounces of beer, 5 ounces of wine, or 1 ounces of liquor. CONTACT YOUR PCP IF: Your symptoms get worse or do not get better with treatment. You think your medicine may be causing side effects. Your anxiety keeps you from doing your regular daily activities. SEEK CARE IMMEDIATELY OR CALL 911 IF: You have chest pain, tightness, or heaviness that spreads to your shoulders, arms, jaw, neck, or back. You feel like hurting yourself or someone else. You have fainting spells. You feel like your heart is beating irregularly. You feel extremely short of breath. If you develop any new or worsening symptoms and need after hours care, please go to nearest ER and/or call 911. If you have additional concerns or develop a change in your condition between 8am-10pm, please call [facility] at [phone] to help navigate your care. nyuzych Not available 12/25/2018 13:57:49 Reason for Referral None Reported. Procedures Surgical History Date Name Laterality Status Provider Name and Address Organization Details Recorded Time 12/25/19 ECG Interpretation - completed ROSELINE ZHANG [address], [place], [address], [place] - [facility] 12/26/2018 22:17:39 Imaging Results None recorded. Procedure Notes None recorded. Medical Equipment None Reported. Allergies No known drug allergies Medications Name Sig Start Date Stop Date Status Note LastModified by Organization Details LastModified Time azithromycin 250 mg tablet 12/25 completed Not Available Not Available Not Available ibuprofen 800 mg tablet active Not Available Not Available No t Available senna 8.6 mg tablet active Not Available Not Available Not Available permethrin 5 % topical cream active Not Available Not Availabl e Not Available acetaminophen 300 mg-codeine 30 mg tablet active Not Available Not Available Not Available clindamycin 1 % topical gel active Not Available Not Available Not Available gabapentin 300 mg capsule active Not Available Not Available N ot Available oxycodone 5 mg tablet active Not Available Not Available Not Available BP 10 % topical gel active Not Available Not Available Not Available Vitals Date Recorded Body temperature Heart rate Respiratory rate Oxygen saturation Systolic And Diastolic Provider Name and Address Organization Details Last Updated DateTime 9 98.1 [degF] 90 /min 16 /min 95 % 124/66 mm[Hg] Not Available [facility] 9 13:15:41 Social History Question Answer Notes LastModified by Organizat ion Details LastModified Time Tobacco Smoking Status Former Smoker ROSELINE ZHANG [address], [place], [address], [place] - [facility] 12/25/2018 13:17:01 Drugs Abused Marijuana Information not available 12/25/2018 How Many Days In The Past Year Have You Had A Heavy Drinking Consumption (4+ Female, 5+ Male)? 0 Information not available 12/25/2018 What Was The Date Of Your Most Recent Tobacco Screening? 12/25/2018 Information not available 05/30/2019 Sex: Unknown Functional Status None recorded. Mental Status None recorded. Family History Nothing Reported. Medical History Condition Response Diabetes N Coronary Artery Disease N Cancer N Stroke N Asthma N COPD N Depression Y High Cholesterol N Pulmonary Embolism N Hypertension N Kidney Disease N Past Encounters Encounter ID Performer Location Encounter Start Date Encounter Closed Date Diagnosis/Indication Diagnosis SNOMED-CT Code Diagnosis ICD10 Code Diagnosis IMO Codes Diagnosis Note [id number] ROSELINE ZHANG [facility] [address] [place] [address] 12/25/2018 12:48:12 12/29/2018 16:51:31 Intermittent palpitations 940523963 R00.2 Health Concerns Section Related Observation LastModified by Organization Detai ls LastModified Time None Recorded Concern Status LastModified by Organization Details LastModified Time None Recorded Advance Directives Directive None Recorded Payers Insurance Date Sequence Insurance Name Policy Number Policy Doan Covered Member ID Doan Member ID Guarantor Name 12/25/2018 1 *SELF PAY* Chandler Black [id number] Chandler Black 12/27/2018 1 [facility] - PLAN N (MEDICARE SUPPLEMENT) Chandler Black [id number] Chandler Black 12/29/2018 1 [place] [facility] Chandler Black [id number] Chandler Black 12/29/2018 1 [facility] PRIOR TO 02/04/2023 - DUAL ELIGIBLE (MEDICARE REPLACEMENT/ADV ANTAGE - HMO) Chandler Black [id number] Chandler Black 12/28/2018 1 [place] [facility] Chandler Walsha [id number] Chandler Black Notes Date Note Type Note Provider Name and Address Organization Details Recorded Time 12/25/2018 text/html Mr. Black is a 33 yo male new to and this provider who presents with complain of palpitations. He was recently hospitalized for necrotizing pneumonia and lung abcess. Patient was discharged home on Zosyn IV TID via PICC line. Medication is administered by as instructed. Patient reports that today he experienced palpitations, chest discomfort and SOB while medications were pushed in by his . Patient stated that this morning she was very tired and pushed medications in faster than she was trained. Patient is asymptomatic at the time of assessment. States that he feels tired but not unusual for him since hospital discharge. Patient has no significant CV risk factors. ROSELINE ZHANG [address], [place], [address], [place] - [facility] 12/26/2018 22:19:25
== END 2025-10-15 16:01 ==
LOC: HO.RESP 16:00
PROVIDERS: PCP Registered Nurse; Visit Provider Registered Nurse
DX: R06.09 Other forms of dyspnea (principal)
CPT/HCPCS: 94060; 94640; 94727; 94729

== ENCOUNTER → 2025-10-15 16:04 | Outpatient (BNV) | payer OTHER, SELFPAY | PROVIDERS: PCP Registered Nurse; Visit Provider Internal Medicine Pulmonary Disease | DX: R06.00 Dyspnea, unspecified (principal) | CPT/HCPCS: 94060; 94727; 94729 ==